=== PATIENT | female | born 1950 | race Caucasian/White ===

== ENCOUNTER 2024-11-08 07:52 | Day surgery (SDC) | payer MEDICARE ==
[~2024-11-08 07:52] MED LIST: BUPIVACAINE 0.5 % PF 150 MG/30 ML VIAL ONE; LIDOCAINE 1% INJ 50 ML MDV IJ ONE
[2024-11-08] MEDS ORDERED: FENTANYL PF 100MCG/2ML AMPUL ONE (08:58)
[2024-11-08] MEDS ORDERED: FAMOTIDINE/PF INJ 20 MG/2 ML VIAL IV ONE (08:58)
[2024-11-08] MEDS ORDERED: ANESTHESIA TRAY IN PYXIS 1 EA TRAY MC ONE (10:31)
== END 2024-11-08 23:59 | disposition home or self-care (01) ==
LOC: DS 07:52 → UNDOADMIN 07:56 → MED 07:56 → UNDODISIN 12:55 → DS 23:59
PROVIDERS: ATTEND Specialist
DX: G56.01 Carpal tunnel syndrome, right upper limb (principal); M65.88 Other synovitis and tenosynovitis, other site; I10 Essential (primary) hypertension; K21.9 Gastro-esophageal reflux disease without esophagitis; E78.2 Mixed hyperlipidemia; Z79.899 Other long term (current) drug therapy; Z98.890 Other specified postprocedural states
CPT/HCPCS: 25115; 64721; A6402; J0690; J1100; J1308; J2405; J2704; J2765; J3010; J3490; J7030; G0378